=== PATIENT | female | born 1960 | race Caucasian/White ===

== ENCOUNTER 2024-01-11 13:33 | Emergency (ER) | payer BC ==
[2024-01-11] MEDS ORDERED: Sodium Chloride 0.9% 10 ML Syringe FLUSH PRN (13:39)
[2024-01-11 13:47] LABS: BASOPHILS ABSOLUTE AUTO 0.04 K/uL (0.00-0.20); BASOPHILS PERCENT AUTO 0.8 % (0.0-2.0); EOSINOPHILS ABSOLUTE AUTO 0.07 K/uL (0.00-0.50); EOSINOPHILS PERCENT AUTO 1.4 % (0.0-5.0); HEMATOCRIT 40.8 % (34.0-46.0); HEMOGLOBIN 13.6 g/dL (11.7-15.5); LYMPHOCYTES ABSOLUTE AUTO 1.22 K/uL (0.50-3.50); LYMPHOCYTES PERCENT AUTO 23.6 % (10.0-50.0); MEAN CORPUSCULAR HEMOGLOBIN 32.1 pg (28.2-33.3); MEAN CORPUSCULAR HGB CONC 33.3 g/dL (31.7-36.0); MEAN CORPUSCULAR VOLUME 96.2 fL (84.0-98.0); MONOCYTES PERCENT AUTO 9.7 % (2.0-14.0); NEUTROPHILS ABSOLUTE AUTO 3.33 K/uL (1.40-7.00); NEUTROPHILS PERCENT AUTO 64.5 % (45.0-80.0); PLATELET COUNT,PLT 253 K/uL (150-350); RED BLOOD CELL COUNT 4.24 M/uL (3.77-5.09); RED CELL DISTRIBUTION WIDTH 13.6 % (11.2-14.1); WHITE BLOOD CELL COUNT,WBC 5.2 K/uL (4.0-10.2)
[2024-01-11 14:10] LABS: ALANINE AMINOTRANSFERASE,ALT 27 U/L (12-78); ALBUMIN 3.9 g/dL (3.4-5.0); ALKALINE PHOSPHATASE 73 IU/L (46-116); ANION GAP 11.2 meq/L (7-15); ASPARTATE AMNIOTRANSFERASE,AST 18 U/L (15-37); BILIRUBIN TOTAL 0.4 mg/dL (0.2-1.0); BLOOD UREA NITROGEN,BUN 17 mg/dL (7-18); CALCIUM 8.9 mg/dL (8.5-10.1); CARBON DIOXIDE,CO2 25.8 mmol/L (21.0-32.0); CHLORIDE,CL 100 mmol/L (98-107); CREATININE 0.93 mg/dL (0.51-1.17); GLUCOSE RANDOM 122 mg/dL (70-99); LIPASE 31 U/L (16-77); MAGNESIUM 1.9 mg/dL (1.8-2.4); POTASSIUM,K 3.8 mmol/L (3.5-5.1); PROTEIN TOTAL,TP 7.4 g/dL (6.4-8.2); SODIUM,NA 137 mmol/L (136-145)
[2024-01-11 14:11] LABS: ESTIMATED GFR 69 mL/min (>=60)
[2024-01-11 14:33] LABS: CORONAVIRUS COVID-19 NAA NEGATIVE (NEGATIVE); INFLUENZA A NAA NEGATIVE (NEGATIVE); INFLUENZA B NAA NEGATIVE (NEGATIVE); RESPIRATORY SYNCYTIAL VIR NAA NEGATIVE (NEGATIVE)
== END 2024-01-11 15:00 | disposition home or self-care (01) ==
LOC: LL.ED 13:33
DX: R07.89 Other chest pain (principal); E78.00 Pure hypercholesterolemia, unspecified; I10 Essential (primary) hypertension; Z79.82 Long term (current) use of aspirin; Z79.899 Other long term (current) drug therapy; Z88.2 Allergy status to sulfonamides
CPT/HCPCS: 0241U; 36415; 71045; 80053; 83690; 83735; 84484; 85025; 85730; 93005; 99285